=== PATIENT | male | born 1955 | race Two or more races ===

== ENCOUNTER 2018-03-28 11:24 | Outpatient (CLI) | payer OTHER | END 2018-03-28 11:33 | disposition home or self-care (01) | LOC: RAD 501 11:24 | DX: M25.562 Pain in left knee (principal) ==

== ENCOUNTER 2018-07-03 13:39 | Emergency (ER) | payer OTHER ==
[~2018-07-03] VITALS: Ht 167.6 cm; Wt 68.0 kg
[2018-07-03] MEDS ORDERED: MUPIROCIN22 GM TOP (15:41)
[2018-07-03] MEDS ORDERED: AMOX-CLAV 875-1 EACH PO (15:41)
[2018-07-03] MEDS ORDERED: KETO10TA2 PO (15:41)
== END 2018-07-03 16:03 | disposition home or self-care (01) ==
LOC: ER 13:39
DX: L03.012 Cellulitis of left finger (principal)

== ENCOUNTER 2019-08-09 18:58 | Emergency (ER) | payer OTHER ==
[~2019-08-09] VITALS: Ht 167.6 cm; Wt 68.0 kg
[~2019-08-09 18:58] MED LIST: AMOX-CLAV 875-1 EACH PO; KETO10TA2 PO; MUPIROCIN22 GM TOP
== END 2019-08-09 23:39 | disposition home or self-care (01) ==
LOC: ER 18:58
DX: B34.9 Viral infection, unspecified (principal)

== ENCOUNTER 2019-08-28 08:19 | Outpatient (CLI) | payer OTHER | END 2019-08-28 08:30 | disposition home or self-care (01) | LOC: LAB 08:19 | DX: J11.1 Influenza due to unidentified influenza virus with other respiratory manifestations (principal); Z12.11 Encounter for screening for malignant neoplasm of colon; D64.89 Other specified anemias; I11.9 Hypertensive heart disease without heart failure; E78.2 Mixed hyperlipidemia; E11.9 Type 2 diabetes mellitus without complications; N40.0 Benign prostatic hyperplasia without lower urinary tract symptoms ==

== ENCOUNTER 2020-09-21 08:59 | Outpatient (CLI) | payer OTHER | END 2020-09-21 09:15 | disposition home or self-care (01) | LOC: LAB 08:59 | PROVIDERS: ATTEND Ophthalmology | DX: D69.8 Other specified hemorrhagic conditions (principal); E11.39 Type 2 diabetes mellitus with other diabetic ophthalmic complication; I15.8 Other secondary hypertension; D68.32 Hemorrhagic disorder due to extrinsic circulating anticoagulants; I10 Essential (primary) hypertension ==

== ENCOUNTER 2022-06-07 08:31 | Outpatient (CLI) | payer OTHER | END 2022-06-07 08:33 | disposition home or self-care (01) | LOC: MRI 08:31 | PROVIDERS: ATTEND Orthopaedic Surgery | DX: S83.201A Bucket-handle tear of unspecified meniscus, current injury, left knee, initial encounter (principal); M25.561 Pain in right knee; M25.562 Pain in left knee | CPT/HCPCS: 73721 ==

== ENCOUNTER 2022-06-21 10:59 | Emergency (ER) | payer OTHER ==
[~2022-06-21] VITALS: Ht 152.4 cm; Wt 68.0 kg
[2022-06-21] MEDS ORDERED: ROSUVASTATIN CAL5 MG PO (11:29)
== END 2022-06-21 15:15 | disposition home or self-care (01) ==
LOC: ER 10:59
DX: U07.1 COVID-19 (principal)

== ENCOUNTER 2022-09-13 09:07 | Outpatient (CLI) | payer OTHER ==
[~2022-09-13 09:07] MED LIST changes: +ROSUVASTATIN CAL5 MG PO
== END 2022-09-13 09:10 | disposition home or self-care (01) ==
LOC: RAD 09:07
PROVIDERS: ATTEND Orthopaedic Surgery
DX: R07.9 Chest pain, unspecified (principal)

== ENCOUNTER 2023-01-17 08:21 | Outpatient (CLI) | payer OTHER | END 2023-01-17 08:27 | disposition home or self-care (01) | LOC: TOM 08:21 → MRI 08:21 | PROVIDERS: ATTEND Orthopaedic Surgery | DX: M25.511 Pain in right shoulder (principal) | CPT/HCPCS: 73218 ==

== ENCOUNTER 2023-02-28 09:20 | Outpatient (CLI) | payer OTHER | END 2023-02-28 09:25 | disposition home or self-care (01) | LOC: EKG 09:20 | PROVIDERS: ATTEND Orthopaedic Surgery | DX: R07.9 Chest pain, unspecified (principal); I10 Essential (primary) hypertension ==

== ENCOUNTER 2023-08-12 09:27 | Outpatient (CLI) | payer OTHER | END 2023-08-12 09:30 | disposition home or self-care (01) | LOC: RAD 09:27 | PROVIDERS: ATTEND Family Medicine | DX: M54.2 Cervicalgia (principal) ==

== ENCOUNTER 2023-09-12 08:50 | Outpatient (CLI) | payer OTHER | END 2023-09-12 08:58 | disposition home or self-care (01) | LOC: RAD 08:50 | PROVIDERS: ATTEND Physical Medicine & Rehabilitation | DX: M25.511 Pain in right shoulder (principal); M25.512 Pain in left shoulder ==

== ENCOUNTER 2024-08-27 07:43 | Outpatient (CLI) | payer OTHER | END 2024-08-27 07:46 | disposition home or self-care (01) | LOC: SONOGRAMA 07:43 | PROVIDERS: ATTEND Specialist/Technologist, Other Nephrology | DX: N18.30 Chronic kidney disease, stage 3 unspecified (principal); R10.9 Unspecified abdominal pain; R31.9 Hematuria, unspecified ==

== ENCOUNTER 2024-10-23 07:58 | Outpatient (CLI) | payer OTHER | END 2024-10-23 08:00 | disposition home or self-care (01) | LOC: SONOGRAMA 07:58 | PROVIDERS: ATTEND Specialist | DX: E04.1 Nontoxic single thyroid nodule (principal) ==